=== PATIENT | female | born 1960 | race Caucasian/White ===

== ENCOUNTER → 2017-03-18 | Outpatient (CLI) | payer BC ==
--- NOTE | 2017-03-18 11:27 | MM ---
Reason for exam: screening (asymptomatic). Last mammogram was performed 1 year and 6 months ago. History: Patient has history of high-risk lesion on a previous biopsy at age 46. Family history of breast cancer in maternal grandmother at age 72. Reductions of both breasts, 2007. Core biopsy of the right breast, 2004. Physical Findings: A clinical breast exam by your physician is recommended on an annual basis and results should be correlated with mammographic findings. MG Screening Mammo w CAD Bilateral CC and MLO view(s) were taken. Prior study comparison: September 12, 2015, bilateral MG 3d diag mammo w/cad [facility]. February 13, 2015, bilateral MG diagnostic mammo w CAD [facility]. The breast tissue is heterogeneously dense. This may lower the sensitivity of mammography. Finding: There are stable typically benign calcifications. There is a stable chronic nodularity in the right breast. No significant changes in finding since September 12, 2015 and February 13, 2015. ASSESSMENT: Benign, BI-RAD 2 RECOMMENDATION: Routine screening mammogram of both breasts in 1 year.
== END | disposition home or self-care (01) ==
LOC: RADMAMWWP 07:16
PROVIDERS: ATTEND Family Medicine
DX: Z12.31 Encounter for screening mammogram for malignant neoplasm of breast (principal)

== ENCOUNTER → 2018-06-17 | Outpatient (CLI) | payer BC ==
--- NOTE | 2018-06-17 13:21 | MM ---
Reason for exam: screening (asymptomatic). Last mammogram was performed 1 year and 3 months ago. History: Patient has history of other cancer at age 55 and has history of high-risk lesion on a previous biopsy at age 46. Family history of breast cancer in maternal grandmother at age 72. Reductions of both breasts, 2007. Core biopsy of the right breast, 2004. Physical Findings: A clinical breast exam by your physician is recommended on an annual basis and results should be correlated with mammographic findings. MG 3D Screening Mammo W/Cad Bilateral CC and MLO view(s) were taken. Prior study comparison: March 18, 2017, bilateral MG screening mammo w CAD. September 12, 2015, bilateral MG 3d diag mammo w/cad [facility]. The breast tissue is heterogeneously dense. This may lower the sensitivity of mammography. There is a stable right upper outer quadrant mass. Benign appearing bilateral calcifications similar to exams back to 2014. Post surgical change bilaterally. Right biopsy marker noted. ASSESSMENT: Benign, BI-RAD 2 RECOMMENDATION: Routine screening mammogram of both breasts in 1 year.
== END | disposition home or self-care (01) ==
LOC: RADMAMWWP 07:09
PROVIDERS: ATTEND Physician Assistant
DX: Z12.31 Encounter for screening mammogram for malignant neoplasm of breast (principal)
CPT/HCPCS: 77063; 77067

== ENCOUNTER → 2019-06-17 | Outpatient (CLI) | payer BC ==
--- NOTE | 2019-06-18 13:23 | MM ---
Reason for exam: screening (asymptomatic). Last mammogram was performed 1 year ago. History: Patient is postmenopausal, has history of other cancer at age 55, and has history of high-risk lesion on a previous biopsy at age 46. Family history of breast cancer in maternal grandmother at age 72. Reductions of both breasts, 2006. Core biopsy of the right breast, 2004. Taking estrogen. Taking progesterone. Physical Findings: A clinical breast exam by your physician is recommended on an annual basis and results should be correlated with mammographic findings. MG 3D Screening Mammo W/Cad Bilateral CC, MLO, and XCCL view(s) were taken. Prior study comparison: June 17, 2018, bilateral MG 3d screening mammo w/cad. March 18, 2017, bilateral MG screening mammo w CAD. The breast tissue is heterogeneously dense. This may lower the sensitivity of mammography. Finding: There are typically benign round, regional, linear calcifications. Previous mammotome biopsy in the right breast. There is a chronic nodularity in the left breast. There is no discrete abnormality. ASSESSMENT: Benign, BI-RAD 2 RECOMMENDATION: Routine screening mammogram of both breasts in 1 year.
== END | disposition home or self-care (01) ==
LOC: RADMAMWWP 15:35
PROVIDERS: ATTEND Obstetrics & Gynecology
DX: Z12.31 Encounter for screening mammogram for malignant neoplasm of breast (principal); Z80.3 Family history of malignant neoplasm of breast
CPT/HCPCS: 77063; 77067

== ENCOUNTER → 2020-04-03 | Outpatient (CLI) | payer BC ==
--- NOTE | 2020-04-03 14:56 | US ---
EXAMINATION TYPE: US thyroid st tissue head/neck DATE OF EXAM: 04/03/2020 COMPARISON: CLINICAL HISTORY: E04.1 SINGLE THYROID NODULE. On thyroid meds. Patient states mother having thyroid cancer. GLAND SIZE: Right Lobe: 3.7 x 1.6 x 1.0 cm Overall Parenchyma: heterogenous Left Lobe: 2.9 x 1.1 x 0.9 cm Overall Parenchyma: heterogeneous Isthmus Thickness: 0.2 cm NODULES RIGHT: # of nodules measured on right: 0 LEFT: # of nodules measured on left: 0 ISTHMUS: # of nodules measured in the isthmus: 0 Bilateral neck scanned. Lateral to left thyroid oval vascular hypoechoic lesion visualized= 1.7 x 1. 1 x 0.7 cm with prominent echogenic [place] seen within = 0.4 x 0.4 x 0.4 cm. Heterogeneous small size thyroid without discrete nodule. Technologist gaona left neck believed to be a prominent but benign subcentimeter lymph node. IMPRESSION: As above.
== END | disposition home or self-care (01) ==
LOC: RADUSWWP 14:13
PROVIDERS: ATTEND Family Medicine
DX: E04.1 Nontoxic single thyroid nodule (principal)
CPT/HCPCS: 76536

== ENCOUNTER → 2020-04-25 | Outpatient (CLI) | payer BC ==
--- NOTE | 2020-04-25 09:15 | CT ---
EXAMINATION TYPE: CT soft tissue neck w con DATE OF EXAM: 04/25/2020 COMPARISON: Ultrasound 04/03/2020 HISTORY: 60-year-old female Localized swelling, mass and lump neck. Difficulty swallowing TECHNIQUE: Contiguous axial scanning of the soft tissues of the neck performed with IV Contrast, emily ent injected with 100 mL of Isovue 300. Coronal/sagittal reconstructions performed. CT DLP: 669 mGycm Automated exposure control for dose reduction was used. FINDINGS: Visualized intracranial structures, orbits and globes, paranasal sinuses, and mastoid air cells are c lear. Rightward nasal septal deviation. Nasopharynx is clear. On the right, there is a 4 mm tonsillolith in the region of the palatine tonsils. There is mild hyper trophy of the tubal tonsils. Oropharynx otherwise clear. Epiglottis and prevertebral soft tissues appear satisfactory. Glottic and subglottic structures as well as the tracheal column and visualized upper lungs are clear . Tiny 3 mm hypodensity right lobe of the thyroid gland. Thyroid gland otherwise appears unremarkable. Submandibular glands are satisfactory. The parotid glands are atrophic with a scattered punctate calc ifications which are nonspecific. No cervical lymphadenopathy by CT size criteria. Moderate degenerative disc disease C4-C7 levels. Grade 1 anterolisthesis at C7-T1 secondary to facet arthropathy. IMPRESSION: 1. NO SUSPICIOUS LYMPHADENOPATHY OR NECK MASS. HOWEVER, NO PALPABLE MARKER WAS PLACED AT THE PATIENT' S SITE OF SWELLING/LUMP. IF THERE IS PERSISTENT CONCERN, THE EXAM CAN BE REVIEWED WITH DIRECTED ATTEN TION. 2. MILD HYPERTROPHY OF THE TUBAL TONSILS AND A 4 MM TONSILLOLITH IN THE RIGHT PALATINE TONSIL. 3. RIGHTWARD NASAL SEPTAL DEVIATION.
== END | disposition home or self-care (01) ==
LOC: RADCTMAIN 07:34
PROVIDERS: ATTEND Family Medicine
DX: J35.1 Hypertrophy of tonsils (principal); J35.8 Other chronic diseases of tonsils and adenoids; J34.2 Deviated nasal septum
CPT/HCPCS: 70491; Q9967

== ENCOUNTER → 2021-03-07 | Outpatient (CLI) | payer BC ==
--- NOTE | 2021-03-07 07:35 | US ---
EXAMINATION TYPE: US kidneys/renal and bladder DATE OF EXAM: 03/07/2021 COMPARISON: NONE CLINICAL HISTORY: R82.90 ABN FINDINGS IN URINE. crystals in urine EXAM MEASUREMENTS: Right Kidney: 10.2 x 4.7 x 4.5 cm Left Kidney: 9.5 x 5.4 x 4.8 cm Right Kidney: No hydronephrosis or masses seen Left Kidney: No hydronephrosis or masses seen Bladder: wnl Bilateral Jets seen: Yes There is no evidence for hydronephrosis at this point in time. No nephrolithiasis is seen. No jame s are identified. The urinary bladder is anechoic. Bilateral ureteral jets are seen. IMPRESSION: Unremarkable kidneys.
== END | disposition home or self-care (01) ==
LOC: RADUSWWP 06:58
PROVIDERS: ATTEND Family Medicine
DX: R82.90 Unspecified abnormal findings in urine (principal)
CPT/HCPCS: 76770

== ENCOUNTER → 2022-02-19 | Outpatient (CLI) | payer BC ==
--- NOTE | 2022-02-20 10:12 | US ---
EXAMINATION TYPE: US thyroid st tissue head/neck DATE OF EXAM: 02/19/2022 COMPARISON: 2019 US thyroid CLINICAL HISTORY: E04.1 thyoid nodule. Thyroid nodule; family hx of thyroid cancer GLAND SIZE: Right Lobe: 3.1 x 0.8 x 1.1 cm Overall Parenchyma: Homogenous Left Lobe: 3.0 x 0.9 x 0.9 cm Overall Parenchyma: Homogenous Isthmus Thickness: 0.19 cm NODULES RIGHT: # of nodules measured on right: 0 LEFT: # of nodules measured on left: 0 ISTHMUS: # of nodules measured in the isthmus: 0 Bilateral neck scanned, no evidence of lymphadenopathy. IMPRESSION: 1. Normal thyroid ultrasound.
--- NOTE | 2022-02-21 07:31 | MM ---
Reason for Exam: Screening (asymptomatic). Last mammogram was performed 2 year(s) and 8 month(s) ago. Patient History: Menarche at age 11. First Full-Term at age 22. Left ovary removed at age 38. Right ovary removed at age 38. Hysterectomy at age 38. Postmenopausal. Currently using Estrogen, starting at age 60. Currently using Progesterone, starting at age 60. 01/05/2006, Bilateral Reduction. 2004, Core Biopsy on the Right side. Maternal grandmother had breast cancer, age 72. Risk Values: Jillian 5 year model risk: 1.7%. NCI Lifetime model risk: 7.1%. Prior Study Comparison: 03/18/2017 Bilateral Screening Mammogram, [facility]. 06/17/2018 Bilateral Screening Mammogram, [facility]. 06/17/2019 Bilateral Screening Mammogram, [facility]. Tissue Density: The breast tissue is heterogeneously dense. This may lower the sensitivity of mammography. Findings: Analyzed By CAD. There is no suspicious group of microcalcifications or new suspicious mass in either breast. Microclip marker right breast. Chronic nodularity. Overall Assessment: Benign, BI-RAD 2 Management: Screening Mammogram of both breasts in 1 year. A clinical breast exam by your physician is recommended on an annual basis and results should be correlated with mammographic findings. Electronically signed and approved by: Martin Malik M.D. Radiologis
== END | disposition home or self-care (01) ==
LOC: RADMAMWWP 16:46
PROVIDERS: ATTEND Family Medicine
DX: Z12.31 Encounter for screening mammogram for malignant neoplasm of breast (principal); E04.1 Nontoxic single thyroid nodule
CPT/HCPCS: 76536; 77063; 77067

== ENCOUNTER 2022-12-13 05:46 | Day surgery (SDC) | payer BC ==
[2022-12-09 16:02] VITALS: BMI 30.6
[~2022-12-13 05:46] MED LIST: ACETAMINOPHEN TAB 500 MG TAB PO PRN; HEPARIN SODIUM,PORCINE/PF 5,000 UNIT/0.5 ML SYRINGE SQ PRN
[2022-12-13] MEDS ORDERED: LACTATED RINGERS 1,000 ML IV SCH (06:01)
[2022-12-13] MEDS ORDERED: ONDANSETRON 4 MG/2 ML VIAL IVP ONE (06:01)
[2022-12-13] MEDS ORDERED: SCOPOLAMINE 1 MG/72 HR PATCH TRANSDERM ONE (06:01)
[2022-12-13] MEDS ORDERED: MIDAZOLAM 2 MG/2 ML VIAL IV PRN (06:01)
[2022-12-13] MEDS ORDERED: DEXAMETHASONE SOD PHOSPHATE 4 MG/ML 1 ML VIAL IV ONE (06:01)
[2022-12-13 06:09] VITALS: RESP 16
[2022-12-13] MEDS ORDERED: HEPARIN SODIUM,PORCINE/PF 5,000 UNIT/0.5 ML SYRINGE SQ ONE (06:23)
[2022-12-13] MEDS ORDERED: ACETAMINOPHEN TAB 500 MG TAB ONE (06:23)
[2022-12-13] MEDS ORDERED: BUPIVACAIN-EPI 0.25%-1:200,000 30 ML VIAL SQ ONE ×2 (06:56→07:30)
[2022-12-13] MEDS ORDERED: HYDROmorphone 0.5 MG/0.5 ML SYRINGE IVP PRN (07:00)
[2022-12-13] MEDS ORDERED: SUCCINYLCHOLINE CHLORIDE 200 MG/10 ML VIAL IV ONE (07:05)
[2022-12-13] MEDS ORDERED: GLYCOPYRROLATE 0.2 MG/ML 2 ML VIAL ONE (07:05)
[2022-12-13] MEDS ORDERED: MIDAZOLAM 2 MG/2 ML VIAL ONE (07:05)
[2022-12-13] MEDS ORDERED: fentaNYL (PF) 50 MCG/ML 2 ML AMP ONE (07:05)
[2022-12-13] MEDS ORDERED: PROPOFOL 10 MG/ML 20 ML VIAL IV ONE (07:05)
[2022-12-13] MEDS ORDERED: LIDOCAINE 4% LTA KIT (4 ML) TOPICAL ONE (07:05)
[2022-12-13] MEDS ORDERED: KETOROLAC 15 MG/ML 1 ML VIAL ONE (07:05)
[2022-12-13] MEDS ORDERED: ROCURONIUM 10 MG/ML (5 ML VIAL) IV ONE (07:05)
[2022-12-13] MEDS ORDERED: NEOSTIGMINE 1 MG/ML 10 ML VIAL ONE (07:05)
--- NOTE | 2022-12-13 07:45 | P.OP ---
Date of Procedure: 12/13/22 Preoperative Diagnosis: Cholecystitis Postoperative Diagnosis: Cholecystitis Procedure(s) Performed: Laparoscopic cholecystectomy Anesthesia: JESSICA Surgeon: Ant Jackson Estimated Blood Loss (ml): 5 Pathology: other (Gallbladder) Condition: stable Disposition: PACU Description of Procedure: The patient was placed on the operating table. The patient received a general endotracheal tube anesthesia. The patients abdomen was prepped and draped in the usual sterile fashion. Through an infraumbilical stab incision, the fascia of the anterior abdominal wall was grasped with a pair of Kochers and then the Veress needle was placed in the peritoneal cavity. Position of the Veress needle was confirmed with positive drop test. The abdomen was then insufflated. After adequate insufflation, the 10 mm trocar was placed in the peritoneal cavity. Following this the laparoscope was placed in the peritoneal cavity. The patient was placed in the head-up, right side up position and then a 5 mm trocar was placed in the right lateral and right subcostal position under direct visualization. A 8 mm trocar was placed in the epigastric position. The gallbladder was grasped in the fundus and infundibulum. Traction on the gallbladder was placed in the lateral and the cephalad positions. The triangle of Calot was visualized.. The cystic duct was bluntly dissected until the union of the cystic duct and common bile duct was seen. A critical view of safety was achieved. The cystic duct was then divided and sealed with the Harmonic scissors. A PDS Endoloop was then placed throughout the cystic duct stump. The cystic artery divided and sealed with the Harmonic scissors. The gallbladder was then removed from the liver bed using Harmonic scissors. The gallbladder was then extracted through the epigastric port site. Operative field was checked for any bleeding spots and Harmonic scissors was used to coagulate the liver bed. The abdomen was irrigated. The trocars were removed. The skin was closed using interrupted 3-0 Vicryl suture. Dermabond dressing were applied. The patient tolerated the procedure well.
[2022-12-13 07:59] VITALS: TEMP 97.6
[2022-12-13] MEDS ORDERED: hydrALAZINE HCL 20 MG/ML 1 ML VIAL IVP ONE (08:42)
[2022-12-13 09:58] VITALS: PULSE 77
[2022-12-13 10:26] VITALS: BP 137/81
== END 2022-12-13 10:33 | disposition home or self-care (01) ==
LOC: OR 05:46
PROVIDERS: ATTEND Surgery
DX: K80.10 Calculus of gallbladder with chronic cholecystitis without obstruction (principal); K44.9 Diaphragmatic hernia without obstruction or gangrene; E07.9 Disorder of thyroid, unspecified; Z79.890 Hormone replacement therapy; Z79.899 Other long term (current) drug therapy; Z88.2 Allergy status to sulfonamides; Z90.710 Acquired absence of both cervix and uterus; Z98.82 Breast implant status; Z85.3 Personal history of malignant neoplasm of breast; Z80.8 Family history of malignant neoplasm of other organs or systems
CPT/HCPCS: 88304; 47562; J2250; J0330; J0360; J1100; J2710; J0690; J2405; J3010; J1885; J2704; J1644

== ENCOUNTER → 2023-03-05 | Outpatient (CLI) | payer BC ==
--- NOTE | 2023-03-06 08:49 | MM ---
Reason for Exam: Screening (asymptomatic). Last mammogram was performed 1 year(s) and 1 month(s) ago. Patient History: Menarche at age 11. First Full-Term at age 22. Left ovary removed at age 38. Right ovary removed at age 38. Hysterectomy at age 38. Postmenopausal. Currently using Estrogen, starting at age 60. Currently using Progesterone, starting at age 60. 01/05/2006, Bilateral Reduction. 2004, Core Biopsy on the Right side. Maternal grandmother had breast cancer, age 72. Risk Values: Jillian 5 year model risk: 1.7%. NCI Lifetime model risk: 6.9%. Prior Study Comparison: 06/17/2018 Bilateral Screening Mammogram, [facility]. 06/17/2019 Bilateral Screening Mammogram, [facility]. 02/19/2022 Bilateral MG 3D screening mammo w/cad, [facility]. Tissue Density: The breast tissue is heterogeneously dense. This may lower the sensitivity of mammography. Findings: Analyzed By CAD. There is no suspicious group of microcalcifications or new suspicious mass in either breast. Overall Assessment: Benign, BI-RAD 2 Management: Screening Mammogram of both breasts in 1 year. . Patient should continue monthly self-breast exams. A clinical breast exam by your physician is recommended on an annual basis. This exam should not preclude additional follow-up of suspicious palpable abnormalities. Note on Jillian scores and lifetime risk: 1. A Jillian score greater than 3% is considered moderate risk. If this is the case, consider specialist referral to assess eligibility for a risk reducing agent. 2. If overall lifetime risk for the development of breast cancer is 20% or higher, the patient may qualify for future screening with alternating mammogram and breast MRI. Electronically signed and approved by: Martin Malik M.D. Radiologis
== END | disposition home or self-care (01) ==
LOC: RADMAMWWP 08:29
PROVIDERS: ATTEND Obstetrics & Gynecology
DX: Z12.31 Encounter for screening mammogram for malignant neoplasm of breast (principal); Z78.0 Asymptomatic menopausal state; Z80.3 Family history of malignant neoplasm of breast
CPT/HCPCS: 77063; 77067

== ENCOUNTER → 2024-03-08 | Outpatient (CLI) | payer MEDICARE, BC ==
--- NOTE | 2024-03-15 08:25 | MM ---
Reason for Exam: Screening (asymptomatic). Last screening mammogram was performed 12 month(s) ago. Patient History: Menarche at age 11. First Full-Term at age 22. Left ovary removed at age 38. Right ovary removed at age 38. Hysterectomy at age 38. Postmenopausal. Patient has history of breast feeding. Currently using Estrogen, starting at age 60. Currently using Progesterone, starting at age 60. 01/05/2006, Bilateral Reduction. 2004, Core Biopsy on the Right side. Maternal grandmother had breast cancer, age 72. Risk Values: Jillian 5 year model risk: 1.8%. NCI Lifetime model risk: 6.6%. Prior Study Comparison: 09/12/2015 Bilateral Diagnostic Mammogram, [facility]. 03/18/2017 Bilateral Screening Mammogram, [facility]. 06/17/2018 Bilateral Screening Mammogram, [facility]. 06/17/2019 Bilateral Screening Mammogram, [facility]. 02/19/2022 Bilateral MG 3D screening mammo w/cad, [facility]. 03/05/2023 Bilateral MG 3D screening mammo w/cad, [facility]. Tissue Density: The breasts are heterogeneously dense, which may obscure small masses. Findings: Analyzed By CAD. There is no suspicious group of microcalcifications or new suspicious mass in either breast. Benign calcifications. Previous biopsy clip marker right breast. Chronic nodularity left breast stable. Overall Assessment: Benign, BI-RAD 2 Management: Screening Mammogram of both breasts in 1 year. . Patient should continue monthly self-breast exams. A clinical breast exam by your physician is recommended on an annual basis. This exam should not preclude additional follow-up of suspicious palpable abnormalities. Note on Jillian scores and lifetime risk: 1. A Jillian score greater than 3% is considered moderate risk. If this is the case, consider specialist referral to assess eligibility for a risk reducing agent. 2. If overall lifetime risk for the development of breast cancer is 20% or higher, the patient may qualify for future screening with alternating mammogram and breast MRI. Electronically signed and approved by: Salo Andrade M.D. Radiologis
== END | disposition home or self-care (01) ==
LOC: RADMAMWWP 07:28
PROVIDERS: ATTEND Family Medicine
DX: Z12.31 Encounter for screening mammogram for malignant neoplasm of breast (principal); R92.333 Mammographic heterogeneous density, bilateral breasts; Z78.0 Asymptomatic menopausal state; Z80.3 Family history of malignant neoplasm of breast
CPT/HCPCS: 77063; 77067

== ENCOUNTER → 2024-09-08 | Outpatient (CLI) | payer MEDICARE, BC ==
--- NOTE | 2024-09-08 14:58 | CT ---
EXAMINATION TYPE: CT left knee - DHAMRESH Protocol DATE OF EXAM: 09/08/2024 2:20 PM COMPARISON: None. CLINICAL INDICATION: Female, 64 years old with history of M17.12 UNILATERAL PRIMARY OSTEOARTHRITIS, L EFT KNE; [facility], Presurgical planning left knee, pain, TECHNIQUE: Axial images were obtained of the bilateral hips, knee and bilateral ankles: CT left knee - DHARMESH Protocol, Additional coronal and sagittal reformatted images and soft tissue and bone window were obtained for review of the bilateral hips, knee and bilateral ankles. Contrast used: mL of , (None if empty) Oral contrast used: (None if empty) CT DLP: 562 mGycm, Automated exposure control for dose reduction was used. FINDINGS: The visualized portion of the hips demonstrate mild osteoarthrosis changes with osteophyte formation of the acetabulum. No acute intrapelvic process. The bony structures of the pelvis are intact. The visualized knee demonstrates osteophyte formation of the tibial plateau, the patella and femoral condyles. There is joint space narrowing and subchondral sclerosis. No evidence of fracture. The visualized ankles demonstrates multifocal osteoarthrosis changes with osteophyte formation and mi ld joint space narrowing. No evidence of fractures. Remote left deltoid ligament injury suggested wit h desiccation present. Other: Scattered colonic diverticula. Uterus is surgically absent. IMPRESSION: Severe osteoarthrosis changes of the knee. [facility], , 09/08/2024 2:56 PM
== END | disposition home or self-care (01) ==
LOC: RADCTMAIN 13:24
PROVIDERS: ATTEND Orthopaedic Surgery
DX: Z01.818 Encounter for other preprocedural examination (principal); M17.12 Unilateral primary osteoarthritis, left knee

== ENCOUNTER → 2024-09-08 | Outpatient (CLI) | payer MEDICARE, BC ==
[2024-09-08 14:17] LABS: INR 0.9 (<1.2); Partial Thromboplastin Time 22.6 sec (22.0-30.0); Prothrombin Time 10.1 sec (10.0-12.5)
[2024-09-08 19:15] LABS: HCT 41.5 % (37.2-46.3); HGB 14.1 g/dL (12.0-15.0); MCH 32.2 pg (27.0-32.0); MCV 94.7 FL (80.0-97.0); Mean Platelet Volume 10.6 FL (9.5-12.2); NRBC Per 100 WBC 0 X 10*3/uL (0.00-0.01); Platelet Count 253 X 10*3/uL (140-440); RBC 4.38 X 10*6/uL (4.10-5.20); RDW 11.9 % (11.5-14.5); WBC 6.88 X 10*3/uL (4.50-10.00)
[2024-09-08 19:25] LABS: ALT 19 U/L (8-44); AST 18 U/L (13-35); Albumin 4.2 g/dL (3.8-4.9); Alkaline Phosphatase 41 U/L (41-126); Blood Urea Nitrogen 27.2 mg/dL (9.0-27.0); Calcium 9.2 mg/dL (8.7-10.3); Carbon Dioxide 27.8 mmol/L (21.6-31.8); Chloride 104 mmol/L (96-109); Globulin 2.1 g/dL (1.6-3.3); Glucose 101 mg/dL (70-110); Potassium 4.4 mmol/L (3.5-5.5); Sodium 140 mmol/L (135-145); Total Bilirubin 0.4 mg/dL (0.3-1.2); Total Protein 6.3 g/dL (6.2-8.2)
== END | disposition home or self-care (01) ==
LOC: LABWHC1 12:29
PROVIDERS: ATTEND Orthopaedic Surgery
DX: Z01.818 Encounter for other preprocedural examination (principal); M17.12 Unilateral primary osteoarthritis, left knee; Z22.322 Carrier or suspected carrier of Methicillin resistant Staphylococcus aureus
CPT/HCPCS: 36415; 80053; 83036; 85027; 85610; 85730; 87070; 93005